=== PATIENT | female | born 1960 | race Caucasian/White ===

== ENCOUNTER 2016-10-17 19:07 | Emergency (ER) | payer BC ==
[2016-10-17 20:07] VITALS: BP 149/75; PULSE 75; TEMP 98.3; BMI 40.3
--- NOTE | 2016-10-17 20:09 | PDOC ---
History of Present Illness - General Chief Complaint: Pain, Acute Stated Complaint: BUG BITE Time Seen by Provider: 10/17/16 19:33 - History of Present Illness Initial Comments: This 55-year-old woman presents with a two-hour history of erythematous, slightly edematous, mildly painful area of the skin of her mid abdomen. Patient noted sharp pain ("like a needle") earlier this afternoon in this area. She noted a small amount of erythema and a small insect on the floor. This insect had not been there previously; patient put the insect in a small cup containing alcohol. There was no other insect bites/stings on any other area of her body. She denies lip/tongue swelling or difficulty swallowing/ breathing. No other rash present. Over the next 2 hours, the area of the insect bite became somewhat more enlarged and edematous and patient presents here for evaluation. No history of ALLERGIC reaction to insect toxin. No history of Lyme disease or other tickborne illness Past History - Past Medical History Allergies/Adverse Reactions: Allergies Allergy/AdvReac Type Severity Reaction Status Date / Time No Known Allergies Allergy Verified 10/17/16 20:03 Home Medications: Ambulatory Orders Chrom Nakita/Brindal Martinez [Garcinia Cambogia Tablet] 1 each PO DAILY 12/06/13 Diclofenac Sodium/Misoprostol [Arthrotec 75 mg-200 Mcg Tab] 1 each PO BID PRN Levothyroxine [Synthroid -] 100 mcg PO DAILY 12/06/13 Triamcinolone 0.5% Cream [Aristocort 0.5% Cream -] 1 gm TP BID #1 tube 10/17/16 Cardiac Disorders: Yes (MURMUR. NORMAL STRESS TEST 2013) Thyroid Disease: Yes (Hypothyroid on medication) - Surgical History Cholecystectomy: Yes - Psycho/Social/Smoking Cessation Hx Anxiety: No Suicidal Ideation: No Smoking History: Never smoked Hx Alcohol Use: No Substance Use Type: None Review of Systems - Review of Systems Able to Perform ROS?: Yes Comments:: 12 point review of systems is negative except for what is noted in the history of present illness *Physical Exam - Physical Exam Comments: GENERAL: Adult female, alert and oriented 3, in no acute distress HEENT: No lip/tongue/uvular edema; no stridor LUNGS: Breath sounds equal, clear to auscultation bilaterally. No wheezes, and no crackles. HEART:Regular rate and rhythm, normal S1 and S2 without murmur, rub or gallop. ABDOMEN:.normal bowel sounds No guarding,tenderness or rebound.No masses No distention. 2.5 cm by 2 cm erythematous, mildly edematous, nontender, nonfluctuant area just to the left and below umbilicus EXTREMITIES: Normal range of motion, no edema. No clubbing or cyanosis. No erythema, or tenderness. NEUROLOGICAL: Cranial nerves II through XII grossly intact. Normal speech. No focal neurological deficits MUSCULOSKELETAL: Back non-tender to palpation, no CVA tenderness SKIN: Warm, Dry, normal turgor, no rashes or lesions noted. Progress Note - Progress Note Progress Note: This 55-year-old woman presents with a history of apparent insect bite to her abdominal wall skin. Area appears mildly inflamed but without evidence of acute ALLERGIC reaction. Patient has no symptoms or signs of systemic ALLERGIC reaction. No evidence of secondary bacterial infection of the wound. The patient brought the insect into the emergency room. On inspection, the insect is not tick but appears to be a small beetle. Patient is reassured that this does not appear to be a tick bite (either by the history of the insect biting her and then falling off immediately and by the appearance of the insect) . Nevertheless, patient should follow-up with her general doctor within the next few days and should return to the emergency room or see her doctor sooner if she develops a generalized rash or if the area of the original rash becomes larger or more painful. Meanwhile, prescription for triamcinolone cream will be transmitted to her pharmacy to be used locally as needed for itching or pain in the insect bite *DC/Admit/Observation/Transfer Diagnosis at time of Disposition: Local reaction to insect sting Qualifiers: Encounter type: initial encounter Injury intent: accidental or unintentional Qualified Code(s): T63.481A - Toxic effect of venom of other arthropod, accidental (unintentional), initial encounter - Discharge Dispostion Disposition: HOME Condition at time of disposition: Stable - Prescriptions Prescriptions: Triamcinolone 0.5% Cream [Aristocort 0.5% Cream -] 1 gm TP BID #1 tube - Patient Instructions Printed Discharge Instructions: Insect Bites and Stings Additional Instructions: cool compresses to area of insect bite claritin or zyrtec as needed for itching triamcinolone cream twice a day to area as needed return to ER immediately if you have swollen lips/tongue or difficulty swallowing/breathing followup with your doctor within 2 days
== END 2016-10-17 20:18 | disposition home or self-care (01) ==
LOC: FER 19:07
DX: T63.481A Toxic effect of venom of other arthropod, accidental (unintentional), initial encounter (principal); Y92.9 Unspecified place or not applicable; Y93.89 Activity, other specified; E03.9 Hypothyroidism, unspecified; R01.1 Cardiac murmur, unspecified
CPT/HCPCS: 99281-25

== ENCOUNTER 2018-04-03 08:00 | Inpatient (IN) | payer BC ==
[2018-04-05 14:29] VITALS: BMI 44.2
[2018-04-10] MEDS ORDERED: ROPIVACAINE HCL 0.5% 30ML VIAL ONE (07:05)
--- NOTE | 2018-04-10 07:07 | HP ---
History & Physical Update - History History: No Change - Physical Physical: No Change - Assessment Assessment: No Change - Plan Plan: No Change (No Change in HP on chart)
[2018-04-10] MEDS ORDERED: ROCURONIUM BROMIDE 50 MG/5 ML VIAL ONE ×2 (07:10→09:14)
[2018-04-10] MEDS ORDERED: SUCCINYLCHOLINE CHLORIDE 200 MG/10 ML VIAL ONE (07:10)
[2018-04-10] MEDS ORDERED: MIDAZOLAM HCL 2 MG/2 ML SINGLE DOSE VIAL ONE ×2 (07:10)
[2018-04-10] MEDS ORDERED: SODIUM CHLORIDE 0.9% P/F 10 ML VIAL IJ ONE (07:10)
[2018-04-10] MEDS ORDERED: PROPOFOL 20 ML ONE (07:10)
[2018-04-10] MEDS ORDERED: DEXAMETHASONE SOD PHOSPHATE 4 MG/1 ML VIAL ONE (07:10)
[2018-04-10] MEDS ORDERED: ceFAZolin SODIUM 1 GM VIAL ONE (07:22)
[2018-04-10] MEDS: PHENAZOPYRIDINE HCL 100 MG TABLET (FP) PO ONE ×2 (07:28→16:04)
[2018-04-10] MEDS ORDERED: SEVOFLURANE 250 ML BTL ONE (08:11)
[2018-04-10] MEDS ORDERED: CEFAZOLIN 2 GM/D5W 2 GM/50 ML ML IVPB ONE (08:30)
[2018-04-10] MEDS ORDERED: ePHEDrine SULFATE 50 MG/1 ML AMPULE ONE (08:49)
[2018-04-10] MEDS ORDERED: ceFAZolin SODIUM 1 GM VIAL IVPB ONE (08:57)
[2018-04-10] MEDS ORDERED: NEOSTIGMINE METHYLSULFATE 0.5 MG/ML - 10 ML MDV ONE (09:46)
[2018-04-10] MEDS ORDERED: GLYCOPYRROLATE 0.2 MG/1 ML VIAL ONE (09:47)
[2018-04-10] MEDS ORDERED: HYDROmorphone HCl 2 MG/ML VIAL ONE (10:28)
[2018-04-10] MEDS ORDERED: ACETAMINOPHEN 1000 MG/100 ML VIAL (NON FORMULARY) IVPB ONE ×2 (10:29→12:22)
[2018-04-10] MEDS ORDERED: ONDANSETRON 4 MG/2 ML VIAL IVPUSH PRN ×2 (10:29→12:21)
[2018-04-10] MEDS ORDERED: HYDROmorphone *PCA* 10MG/50ML DISP.SYRIN PCA SCH (10:30)
[2018-04-10] MEDS ORDERED: LACTATED RINGERS SOLUTION 1,000 ML IV SCH (10:30)
[2018-04-10] MEDS ORDERED: DOCUSATE SODIUM 100 MG CAPSULE (FP) PO PRN (10:32)
[2018-04-10] MEDS ORDERED: BISACODYL 5 MG TABLET.DR (FP) PO PRN (10:33)
[2018-04-10] MEDS: HYDROmorphone HCL CARPU-JECT 2 MG/1 ML DISP.SYRIN IVPUSH ONE ×5 (10:35→19:26)
[2018-04-10] MEDS ORDERED: SODIUM CHLORIDE 0.9% 500 ML INFUS.BAG IV ONE (10:37)
--- NOTE | 2018-04-10 10:44 | OP ---
Operative Note - Note: Operative Date: 04/10/18 Pre-Operative Diagnosis: Leiomyoma, pelvic pain Operation: Open abdominal hysterectomy, bilateral salpingo-oophorectomy, removal of fibroid Findings: as dictated Implants: none Post-Operative Diagnosis: Same as Pre-op Surgeon: Joycelyn Figueroa User Experience Analyst: Enid Gan Anesthesiologist/CIAIO COUNTER MOLDER: Rosa Stark Anesthesia: General Specimens Removed: Leiomyoma, Uterus, cervix, bilateral overaies and fallopian tubes Estimated Blood Loss (mls): 400 (ml) Drains, Volume Out (mls): 150 (ml deep urine) Fluid Volume Replaced (mls): 1,600 (ml LR, 125cc cell saver administered) Operative Report Dictated: Yes
--- NOTE | 2018-04-10 10:46 | SURG ---
Surgery Early Childhood Services Coordinator Note Early Childhood Services Coordinator: Enid Gan PA-C (Suzy) Date of Service: 04/10/18 Diagnosis: Leiomyoma, pelvic pain Procedure: Open abdominal hysterectomy, bilateral salpingo-oophorectomy, removal of fibroid Zafar placement by PA in OR for prolonged immobilization I was present for the entirety of the operative procedure. For further detail, please refer to operative report.
[2018-04-10] MEDS ORDERED: ONDANSETRON 4 MG/2 ML VIAL ONE (12:05)
[2018-04-10] MEDS ORDERED: oxyCODONE HCL 5 MG TABLET PO PRN (12:21)
[2018-04-10] MEDS ORDERED: traMADol HCL 50 MG TABLET ONE (12:24)
[2018-04-10] MEDS ORDERED: traMADol HCL 50 MG TABLET PO ONE (12:30)
[2018-04-10] MEDS: FOLIC ACID 1 MG TABLET (FP) PO SCH ×2 (14:02→21:34)
[2018-04-10] MEDS: LOSARTAN POTASSIUM 50 MG TABLET (FP) PO SCH (15:10)
[2018-04-10] MEDS: predniSONE 5 MG TABLET (UD) PO SCH ×2 (15:10→21:31)
[2018-04-10] MEDS: LEVOTHYROXINE NA 100 MCG TABLET (FP) PO SCH (15:10)
[2018-04-10] MEDS: LACTATED RINGERS SOLUTION 1,000 ML IV SCH (16:05)
[2018-04-10] MEDS: CEFAZOLIN 2 GM/D5W 2 GM/50 ML ML IVPB SCH (17:30)
[2018-04-10] MEDS ORDERED: traMADol HCL 50 MG TABLET PO PRN (18:15)
[2018-04-10 19:13] LABS: HEMATOCRIT 31.7 % (32.4-45.2); HEMOGLOBIN 10.2 GM/dL (10.7-15.3); MCH 26.7 pg (25.7-33.7); MCHC 32.2 g/dl (32.0-36.0); MEAN CELL VOLUME 82.9 fl (80-96); MEAN PLT VOLUME 9.2 fl (7.5-11.1); MONO % 2.3 % (3.8-10.2); NEUT % 87.7 % (42.8-82.8); PLATELET COUNT 288 K/MM3 (134-434); RBC 3.83 M/mm3 (3.60-5.2); RDW 18.9 % (11.6-15.6); WHITE BLOOD COUNT 14.1 K/mm3 (4.0-10.0)
[2018-04-10 19:17] LABS: ANION GAP 9 MMOL/L (8-16); BLOOD UREA NITROGEN 14 mg/dL (7-18); CALCIUM 8.5 mg/dL (8.5-10.1); CHLORIDE 103 mmol/L (98-107); CO2 27 mmol/L (21-32); CREATININE 0.8 mg/dL (0.55-1.3); GLUCOSE,RANDOM 158 mg/dL (74-106); POTASSIUM 4.6 mmol/L (3.5-5.1); SODIUM 139 mmol/L (136-145)
[2018-04-11] MEDS: CEFAZOLIN 2 GM/D5W 2 GM/50 ML ML IVPB SCH (02:02)
[2018-04-11] MEDS ORDERED: PCA PUMP KEY 1 EACH EACH ONE ×2 (04:39→11:55)
[2018-04-11] MEDS: HYDROmorphone *PCA* 10MG/50ML DISP.SYRIN PCA SCH ×2 (04:44→20:02)
[2018-04-11] MEDS: LEVOTHYROXINE NA 100 MCG TABLET (FP) PO SCH (06:24)
[2018-04-11] MEDS ORDERED: PNEUMOC 13-VAL CONJ-DIP CRM/PF 0.5 ML DISP.SYRIN IM ONE (07:10)
--- NOTE | 2018-04-11 07:28 | PN ---
Progress Note (short form) - Note Progress Note: POD1, s/p Open abdominal hysterectomy, bilateral salpingectomy Pt seen and examined. States she is doing "exceptionally well". Pain is well controlled with ANALYTIC PROGRAMMER. Has not been oob yet, is tolerating clears. Zafar in place. Has not passed flatus. Reports minimal vaginal spotting. Denies cp/sob, n /v/d, gennaro pain/edema. Vital Signs Temp 98.3 F 04/11/18 06:00 Pulse 74 04/11/18 06:00 Resp 20 04/11/18 06:00 BP 116/56 L 04/11/18 06:00 Pulse Ox 96 04/10/18 21:00 Intake & Output 04/10/18 04/10/18 04/11/18 11:59 23:59 11:59 Intake Total 325 740 950 Output Total 500 1400 1100 Balance -175 -660 -150 Intake: IV 200 450 900 Lactated Ringers Solution 450 900 1,000 ml @ 75 mls/hr IV ASDIR ANA Rx#:[id number] IVPB 50 50 Oral 240 Blood Product 125 Output: Urine 100 1400 1100 Zafar 500 1100 Estimated Blood Loss 400 Other: Voiding Method Indwelling Catheter Abnormal Lab Results 04/10/18 04/10/18 17:30 17:30 WBC 14.1 H Hgb 10.2 L Hct 31.7 L RDW 18.9 H Absolute Neuts (auto) 12.4 H Neutrophils % 87.7 H Monocytes % 2.3 L Random Glucose 158 H Gen: awake,alert, nad. Resp: cta b/l anteriorly CV: rrr, s1s2 Abdo: soft, tender around incision site, ND, hypoactive bowel sounds. Dressing c /d/i Ext: b/l le's with scds in place and on A/P: 57 y/o F w/ PMHx htn, hypothyroidism, morbid obesity, rheumatoid arthritis , Jehova's Witness, fibroids, now POD 1, s/p open abdominal hysterectomy, bilateral salpingectomy. Doing well this AM, pain controlled. Afebrile, VSS. Jehova's witness, no blood products -Continue pain management per anesthesia -F/U AM labs -Zafar out when pt is oob and ambulating -Advance diet as tolerated -IVF-LR @75mls/hr, heplock when pt tolerating PO -OOB with assistance -Zofran 4mg q6hrs prn nausea -Bowel regimen as ordered -Monitor I&Os -VS per prtocol -Incentive spirometer strongly encouraged -DVT prophylaxis with Lovenox 40 qd, scds and early ambulation above d/w attending Dr Figueroa
[2018-04-11 08:29] LABS: BASO % 0.3 % (0-2.0); HEMATOCRIT 29.4 % (32.4-45.2); HEMOGLOBIN 9.5 GM/dL (10.7-15.3); LYMPH % 21.8 % (8-40); MCH 26.5 pg (25.7-33.7); MCHC 32.1 g/dl (32.0-36.0); MEAN CELL VOLUME 82.5 fl (80-96); MEAN PLT VOLUME 9.1 fl (7.5-11.1); MONO % 5.6 % (3.8-10.2); NEUT % 72.3 % (42.8-82.8); PLATELET COUNT 269 K/MM3 (134-434); RBC 3.57 M/mm3 (3.60-5.2); RDW 19.1 % (11.6-15.6); WHITE BLOOD COUNT 12.8 K/mm3 (4.0-10.0)
[2018-04-11 09:02] LABS: ANION GAP 8 MMOL/L (8-16); BLOOD UREA NITROGEN 11 mg/dL (7-18); CALCIUM 8.5 mg/dL (8.5-10.1); CHLORIDE 102 mmol/L (98-107); CO2 28 mmol/L (21-32); CREATININE 0.6 mg/dL (0.55-1.3); GLUCOSE,RANDOM 112 mg/dL (74-106); POTASSIUM 4.1 mmol/L (3.5-5.1); SODIUM 139 mmol/L (136-145)
[2018-04-11] MEDS: FOLIC ACID 1 MG TABLET (FP) PO SCH ×2 (09:42→22:47)
[2018-04-11] MEDS: predniSONE 5 MG TABLET (UD) PO SCH ×2 (09:42→22:47)
[2018-04-11] MEDS: ENOXAPARIN NA (PORCINE) 40 MG/0.4 ML DISP.SYRIN SQ SCH (09:42)
--- NOTE | 2018-04-11 11:53 | CON.CARD ---
Consult Consult Specialty:: Cardiology Referred by:: Dr. Figueroa Reason for Consultation:: Cardiac evaluation - History of Present Illness Chief Complaint: ? Bradycardia in the OR History of Present Illness: Patient is a 57 year old female with underlying history of HTN and RA who is post op for open total hyterectomy and SBO. Cardiology consultation was called to evaluated episode of bradycardia during surgery. OR note was reviewed which does not report any significant drop in HR. Medical record does not state any significant HR drop. Currently, she is asymptomatic. Denies chest pain, SOB or palpitations. She denies paroxysmal nocturnal dyspnea or orthopnea. She denies fever or chills. She denies nausea, vomiting, diarrhea or abdominal pain. She denies headache or dizziness. - History Source History Provided By: Patient, Medical Record Limitations to Obtaining History: No Limitations - Past Medical History Cardio/Vascular: Yes: HTN Reproductive: Yes: Fibroids Rheumatology: Yes: Rheumatoid Arthritis - Past Surgical History Past Surgical History: Yes: Cholecystectomy, Hysterectomy, Oopherectomy Additional Surgical History: Knee surgery, shoulder surgery - Alcohol/Substance Use Hx Alcohol Use: No - Smoking History Smoking history: Never smoked Have you smoked in the past 12 months: No Home Medications - Allergies Allergies/Adverse Reactions: Allergies Allergy/AdvReac Type Severity Reaction Status Date / Time etanercept [From Enbrel] Allergy Severe Rash Verified 04/10/18 07:14 oxycodone [From Percocet] Allergy Severe HALLUCINATI Verified 04/10/18 07:14 ONS - Home Medications Home Medications: Ambulatory Orders Levothyroxine [Synthroid -] 100 mcg PO DAILY 12/06/13 Cetirizine HCl [Zyrtec -] 10 mg PO PRN PRN 04/05/18 Folic Acid 1 mg PO BID 04/05/18 Gabapentin 300 mg PO TID 04/05/18 Linaclotide [Linzess] 145 mcg PO PRN 04/05/18 Losartan Potassium 50 mg PO DAILY 04/05/18 Methotrexate [Mexate -] 20 mg PO WEEKLY 04/05/18 Prednisone 5 mg PO BID 04/05/18 Tramadol HCl 50 mg PO PRN 04/05/18 Family Disease History - Family Disease History Other Family History: CAD Review of Systems - Review of Systems Constitutional: denies: Chills, Fever Cardiovascular: denies: Chest Pain, Palpitations, Shortness of Breath Respiratory: denies: Cough, Hemoptysis, Orthopnea, PND, SOB, SOB on Exertion Gastrointestinal: denies: Abdominal Pain, Diarrhea, Melena, Nausea, Rectal Bleeding, Vomiting Genitourinary: denies: Dysuria, Hematuria Neurological: denies: Dizziness, Headache, Seizure, Syncope Vital Signs: Vital Signs Temperature 98.3 F 04/11/18 10:00 Pulse Rate 73 04/11/18 10:00 Respiratory Rate 20 04/11/18 10:00 Blood Pressure 107/56 L 04/11/18 10:00 O2 Sat by Pulse Oximetry (%) 96 04/10/18 21:00 Eyes: Yes: PERRL HENT: Yes: Atraumatic Neck: Yes: Supple Respiratory: Yes: CTA Bilaterally Gastrointestinal: Yes: Normal Bowel Sounds, Soft. No: Tenderness Cardiovascular: Yes: Regular Rate and Rhythm JVD: No Carotid Bruit: No PMI: Non-Displaced Heart Sounds: Yes: S1, S2. No: Gallop Murmur: No: Systolic Murmur, Diastolic Murmur Edema: No - Other Data Labs, Other Data: CBC, BMP 04/11/18 07:10 04/11/18 07:10 Problem List - Problems (1) HTN (hypertension) Code(s): I10 - ESSENTIAL (PRIMARY) HYPERTENSION Qualifiers: Hypertension type: essential hypertension Qualified Code(s): I10 - Essential (primary) hypertension (2) Hypothyroidism Code(s): E03.9 - HYPOTHYROIDISM, UNSPECIFIED Qualifiers: Hypothyroidism type: unspecified Qualified Code(s): E03.9 - Hypothyroidism , unspecified (3) S/P KIZZY-BSO Code(s): Z90.710 - ACQUIRED ABSENCE OF BOTH CERVIX AND UTERUS; Z90.722 - ACQUIRED ABSENCE OF OVARIES, BILATERAL; Z90.79 - ACQUIRED ABSENCE OF OTHER GENITAL ORGAN(S) Assessment/Plan 1. Episode of bradycardia but no strips seen 2. HTN 3. Post op KIZZY and SBO POD #1 4. History of RA 5. Hypothyroidism PLAN: 1. Continue Losartan which can be given 25 mg QD 2. Post op management as per PRODUCTION UTILITY WORKER 3. Further cardiac work up (including Echocardiography and Holter monitor) can be done as outpatient. ( is a patient of Dr. Dano Colin) 4. Thyroid replacement therapy 5. Check TFT 6. ECG Further plans are to follow Bartolome Villatoro MD
[2018-04-11] MEDS ORDERED: LOSARTAN POTASSIUM 25 MG TABLET PO SCH (12:02)
[2018-04-11] MEDS ORDERED: ACETAMINOPHEN 500 MG TABLET (FP) PO PRN (12:11)
[2018-04-11] MEDS: LOSARTAN POTASSIUM 50 MG TABLET (FP) PO SCH (12:30)
[2018-04-11] MEDS ORDERED: LOSARTAN POTASSIUM 25 MG TABLET PO ONE (12:45)
[2018-04-11] MEDS: GABAPENTIN 300 MG CAPSULE (FP) PO SCH ×2 (13:40→22:47)
[2018-04-11] MEDS: LACTATED RINGERS SOLUTION 1,000 ML IV SCH (15:01)
--- NOTE | 2018-04-11 17:45 | PATH ---
Surgical Pathology Report Patient Name: [facility]INE B[facility]. Rec. #: [id number] /Age/Gender: 1960 (Age: 57) / F Account: [id number] Location: [facility] OBS/TUBE PULLER Taken: 04/10/2018 Received: 04/10/2018 Reported: 04/11/2018 Physicians: Joycelyn Figueroa M.D. Specimen(s) Received UTERUS, CERVIX, TUBES AND OVARIES, FIBROIDS Clinical History Abnormal uterine bleeding, fibroid Final Diagnosis UTERUS, CERVIX, RIGHT AND LEFT FALLOPIAN TUBES AND OVARIES, TOTAL ABDOMINAL HYSTERECTOMY: ENDOMETRIAL POLYP. PROLIFERATIVE ENDOMETRIUM. LEIOMYOMA(TA). CERVIX WITH NABOTHIAN CYSTS AND SQUAMOUS METAPLASIA. UNREMARKABLE BILATERAL OVARIES AND FALLOPIAN TUBES. Electronically Signed Luisana Venegas M.D. Gross Description Received in formalin labeled "uterus, cervix, fallopian tubes," is a 162 g supracervically amputated uterus with an attached left fallopian tube and left ovary. The cervix, right fallopian tube and right ovary are separately received within the same container. There is also a fibroid separately received within the same container. The hysterectomy measures 10.5 cm from superior to inferior, 6.0 cm from left to right and 4.5 cm from anterior to posterior. The serosa is hull-pink and smooth with a focal defect at the right aspect of the specimen. The endometrial cavity measures 4.5 cm in length and 2.0 cm from cornu to cornu. The posterior fundus displays a 3.5 x 1.3 cm hull-red, polypoid lesion. The remaining endometrium is hull-red and averages 0.1 cm in thickness. The myometrium displays focal intramural nodules, measuring up to 2.0 cm in greatest dimension. The cut surface of the nodules is hull and rubbery with whorled architecture. No areas of hemorrhage or necrosis are identified. The separately received cervix measures 3.0 cm in length and averages 3.4 cm in diameter. The cervix is unoriented. The ectocervix is hull, smooth and glistening. The endocervix is unremarkable. The attached left fimbriated fallopian tube measures 6 cm in length. The outer surface is wheat purple and smooth. Sectioning reveals an unremarkable lumen. The left ovary measures 3.5 x 2.0 x 1.3 cm. The outer surface is hull-yellow, convoluted and smooth. Sectioning reveals unremarkable ovarian parenchyma. The separately received right fimbriated fallopian tube measures 3.5 cm in length. The outer surface is wheat purple and smooth. Sectioning reveals an unremarkable lumen. The right ovary measures 3.5 x 1.7 x 1.3 cm. The outer surface is hull, convoluted and smooth. Sectioning reveals unremarkable ovarian parenchyma. The separately received fibroid is 303 g and measures 8.0 cm in greatest dimension. The outer surface is hull-yellow with a focal defect. Sectioning reveals hull, rubbery parenchyma with whorled architecture. No areas of hemorrhage or necrosis are identified. Millinery Blocker sections are submitted in 18 cassettes as follows: 2-1-qswjfmzazhafgq cervix; 4-1-qaqjacsa endomyometrium; 6-5-brzykxsg posterior endometrial polyp; 7-additional posterior endomyometrium; 8-intramural nodules; 9-left fallopian tube fimbria; 10-cross sections of left fallopian tube; 11-left ovary; 12-right fallopian tube fimbria; 13-cross sections of right fallopian tube; 14-right ovary; 40-71-ezkrzopsnz received fibroid. DL04/10/2018 saudi04/10/2018
--- NOTE | 2018-04-11 18:09 | EKG ---
Test Reason : Blood Pressure : / mmHG Vent. Rate : 061 BPM Atrial Rate : 061 BPM P-R Int : 144 ms QRS Dur : 090 ms QT Int : 414 ms P-R-T Axes : 003 036 049 degrees QTc Int : 416 ms NORMAL SINUS RHYTHM NORMAL ECG Confirmed by MD AIYANA, MAGUE ([id number]) on 04/11/2018 6:09:41 PM Referred By: Wenceslao GOODWIN Confirmed By:MAGUE BRONSON MD
[2018-04-12] MEDS: GABAPENTIN 300 MG CAPSULE (FP) PO SCH (06:45)
[2018-04-12] MEDS: LEVOTHYROXINE NA 100 MCG TABLET (FP) PO SCH (06:45)
[2018-04-12] MEDS: predniSONE 5 MG TABLET (UD) PO SCH (09:20)
[2018-04-12] MEDS: ENOXAPARIN NA (PORCINE) 40 MG/0.4 ML DISP.SYRIN SQ SCH (09:20)
[2018-04-12] MEDS: FOLIC ACID 1 MG TABLET (FP) PO SCH (09:22)
--- NOTE | 2018-04-12 09:56 | PN ---
Progress Note (short form) - Note Progress Note: Post op day#1.S/p KIZZY with BSO under GA with bilateral TAP block uneventful.Patient was on Dilaudid STAGECRAFT PROFESSOR which was Dc by the thien this morning, She is c/o pain score of 4-5/10.Will add some pain medication.No any anesthesia related problem.Patient DC from the anesthesia care.
[2018-04-12] MEDS ORDERED: MORPHINE SULFATE 2 MG/ML VIAL IVPUSH PRN (09:58)
[2018-04-12] MEDS ORDERED: PNEUMOCOCCAL 23 VACCINE 0.5 ML VIAL IM ONE (10:00)
[2018-04-12 12:23] VITALS: BP 109/67; PULSE 79; TEMP 98.2
--- NOTE | 2018-04-18 15:45 | OP ---
DATE OF OPERATION: 04/10/2018 PREOPERATIVE DIAGNOSES: Leiomyomatous uterus, pelvic pain, anemia. OPERATION: Total abdominal hysterectomy and bilateral salpingo-oophorectomy also part of the procedure is removal of myoma. POSTOPERATIVE DIAGNOSES: Leiomyomatous uterus, pelvic pain, anemia, large lower segment cervical myoma. SURGEON: Yasmin Figueroa MD GARNETT FEEDER: ALICE Burton ANESTHESIA: General. PROCEDURE: The patient was taken to the operating room, placed in supine position, prepped and draped in usual sterile fashion. A timeout was performed in accordance with hospital regulation. A Pfannenstiel skin incision was made. Cautery was then used to go through layers of abdominal wall to the level of the fascia. Fascia was cut in the midline and cautery was then used to open the fascia in smiling fashion. Kochers were then used to bluntly and sharply dissect the rectus muscle. The fascia was split in the midline. Peritoneal cavity was then entered and carried up and down. A leiomyomatous uterus was then exteriorized. Abdominal packing was then placed. Visualization revealed about an 8-cm lower segment myoma. The myoma was then entered, and myomectomy was then performed prior to start of the surgery. Infundibulopelvic ligament was identified and clamped and cut using LigaSure and round ligament was identified and clamped and cut along the left side. Vesicouterine reflection was then entered, and bladder was bluntly dissected out of the operative field. The same procedure was repeated on the right side. Infundibulopelvic ligament was identified, clamped, and cut, and round ligament was identified and clamped and cut. Vesicouterine reflection was then entered and was carried upward and downward. Uterine artery was identified and clamped and cut using LigaSure and cardinal ligament was identified and clamped and cut using LigaSure down to the level of the vagina. The vagina was then entered, and Sariah was then used to cut the vagina away from the cervix. Specimen was submitted to Pathology. Closure of the vagina was then done using 0 Vicryl suture. Hemostasis was achieved. All bleeding was noted to be hemostatic. More free ties were then used to tie off any bleeding that was seen. The infundibulopelvic ligament was identified and found to be hemostatic. Packing was then removed. Peritoneum was then closed after abdominal sweep done using 0 Vicryl suture. Muscles approximated in midline using 0 Vicryl suture. Fascia was then closed using 0 Vicryl suture in 2 parts. Skin was then closed using 3-0 Vicryl in subcuticular fashion. Wound was washed and dressed. Patient tolerated the procedure well and was taken to recovery in stable condition. Estimated blood loss 100 mL. YASMIN FIGUEROA M.D. JENNA/[id number]
== END 2018-04-12 12:25 | disposition home or self-care (01) | DRG 743 ==
LOC: JSAMEDAYSX 04-10 05:30 → J3W 04-10 12:50
PROVIDERS: ADMIT Obstetrics & Gynecology; ATTEND Obstetrics & Gynecology
PROC: 0UT70ZZ Resection of Bilateral Fallopian Tubes, Open Approach (ICD-10-PCS; 2018-04-10)
PROC: 0UT20ZZ Resection of Bilateral Ovaries, Open Approach (ICD-10-PCS; 2018-04-10)
PROC: 0UT90ZZ Resection of Uterus, Open Approach (ICD-10-PCS; principal; 2018-04-10 08:00)
DX: D25.1 Intramural leiomyoma of uterus (principal); N84.0 Polyp of corpus uteri; N88.8 Other specified noninflammatory disorders of cervix uteri; I10 Essential (primary) hypertension; R00.1 Bradycardia, unspecified; M06.9 Rheumatoid arthritis, unspecified; E03.9 Hypothyroidism, unspecified
CPT/HCPCS: 36415; 80048; 84439; 84443; 85025; 86850; 86900; 86901; 88307-TC; 90732; 93005; 93010; 94010; 94760; G0009; J0131; J1644